=== PATIENT | male | born 1955 | race Caucasian/White ===

== ENCOUNTER 2017-10-28 19:49 | Emergency (ER) | payer OTHER ==
[~2017-10-28] VITALS: Ht 170.2 cm; Wt 99.8 kg
== END 2017-10-28 21:50 | disposition home or self-care (01) ==
LOC: ED 19:49
DX: S93.401A Sprain of unspecified ligament of right ankle, initial encounter (principal); Z88.7 Allergy status to serum and vaccine; X50.9XXA Other and unspecified overexertion or strenuous movements or postures, initial encounter; Y93.02 Activity, running
CPT/HCPCS: 73610; 99283

== ENCOUNTER 2017-11-01 19:40 | Emergency (ER) | payer OTHER ==
[~2017-11-01] VITALS: Ht 170.2 cm; Wt 99.8 kg
== END 2017-11-03 16:04 | disposition short-term general hospital (02) ==
LOC: ED 19:40
DX: F29 Unspecified psychosis not due to a substance or known physiological condition (principal); Z88.7 Allergy status to serum and vaccine
CPT/HCPCS: 70450; 80053; 80176; 81001; 82140; 84443; 85025; 99285; G0480

== ENCOUNTER 2017-12-13 13:48 | Emergency (ER) | payer OTHER ==
[~2017-12-13] VITALS: Ht 170.2 cm; Wt 99.8 kg
--- OUTSIDE RECORDS SUMMARY | ~2017-12-13 | XMS | Encounter Summary ---
Demographics + + + | Address | [address] | | | [place] [address] | + + + | Home Phone | | + + + | Preferred Language | Unknown | + + + | Marital Status | | + + + | Shinto Affiliation | Unknown | + + + | Race | Unknown | + + + | Ethnic Group | Unknown | + + + Author + + + | Author | [facility] | + + + | Organization | [facility] | + + + | Address | Unknown | + + + | Phone | Unavailable | + + + Support + + + + + | Name | Relationship | Address | Phone | + + + + + | Ana Jacobson | ECON | [address] | | | | | [place] | | | | | [address] | | + + + + + Care Team Providers + +------+ + | Care Recovery Specialist Name | Role | Phone | + +------+ + | Reno Coughlin MD | PCP | | + +------+ + Reason for Visit +--------+ + | Reason | Comments | +--------+ + | Other | [facility] | +--------+ + Encounter Details +--------+ + + + + | Date | Type | Department | Care Team | Description | +--------+ + + + + | 10/24/ | Sayda | ELISSA Phipps | Esther Moreno | Other ([facility] | | 2018 | on Only | [facility] | Etta, MANUFACTURING MAINTENANCE MANAGER | Records) | | | | [address] | | | | | | [place] | | | | | | [address] | | | | | | [phone] | | | +--------+ + + + + Social History + +-------+ +--------+------+ | Tobacco Use | Types | Packs/Day | Years | Date | | | | | Used | | + +-------+ +--------+------+ | Never Smoker | | | | | + +-------+ +--------+------+ + +---+---+---+ | Smokeless Tobacco: | | | | | Current User | | | | + +---+---+---+ + + +---------+ + | Alcohol Use | Drinks/We | oz/Week | Comments | | | ek | | | + + +---------+ + | Yes | | | occ | + + +---------+ + + + + | Sex Assigned at | Date Recorded | | | | + + + | Not on file | | + + + as of this encounter Plan of Treatment Not on fileas of this encounter Visit Diagnoses Not on filein this encounter"
--- OUTSIDE RECORDS SUMMARY | ~2017-12-13 | XMS | Clinical Summary ---
Demographics + + + | Address | [address] | | | [place] [address] | + + + | Home Phone | | + + + | Preferred Language | Unknown | + + + | Marital Status | | + + + | Christianity Affiliation | Unknown | + + + | Race | Unknown | + + + | Ethnic Group | Unknown | + + + Author + + + | Author | [facility] | + + + | Organization | [facility] | + + + | Address | Unknown | + + + | Phone | Unavailable | + + + Support + + + + + | Name | Relationship | Address | Phone | + + + + + | Ana Henson | ECON | [address] | | | | | [place] | | | | | [address] | | + + + + + Care Team Providers + +------+ + | Care Heel Seat Pounder Name | Role | Phone | + +------+ + | Reno Coughlin MD | PP | | + +------+ + Allergies + + + + + + | Active Allergy | Reactions | Severity | Noted | Comments | | | | | Date | | + + + + + + | Simvastatin | Muscle Pain | | 10/09/19 | | | | | | 18 | | + + + + + + | Tetanus Toxoid | Other (See Comments) | Medium | 08/07/20 | Gets red and gets | | | | | 17 | a fever | + + + + + + Current Medications + + +-------+---------+------+------+-------+ | Prescription | Sig. | Disp. | Refills | Star | End | Statu | | | | | | t | Date | s | | | | | | Date | | | + + +-------+---------+------+------+-------+ | aspirin 81 MG | Take 81 mg by mouth | | | | | Activ | | tablet | daily. 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) | | + + + | Shortness of breath | 08/07/2017 | + + + Encounters +--------+ + + + + | Date | Type | Specialty | Care Team | Description | +--------+ + + + + | 10/24/ | Documentati | | Tiffanie Esther | Other ([facility] | | 2017 | on Only | | KAYLIN Quiles | Records) | +--------+ + + + + | 10/09/ | Office | | Fernando Verduzco, | Coronary artery | | 2018 | Visit | | MD | disease involving | | | | | | [place] coronary | | | | | | artery of [place] | | | | | | heart with angina | | | | | | pectoris (HCC) | | | | | | (Primary Dx); | | | | | | Shortness of breath; | | | | | | Other fatigue; | | | | | | Annual physical exam | +--------+ + + + + from Last 3 Months Family History + + +------+ + | Medical History | Relation | Name | Comments | + + +------+ + | Heart defect | Father | | | + + +------+ + + +------+ + + | Relation | Name | Status | Comments | + +------+ + + | Father | | | | | | | (Age | | | | | 69) | | + +------+ + + | Mother | | Alive | | + +------+ + + Social History + +-------+ +--------+------+ [...] on file | | + + + Last Filed Vital Signs + + + + | Vital Sign | Reading | Time Taken | + + + + | Blood Pressure | 132/72 | 10/09/2017 10:30 AM PST | + + + + | Pulse | 98 | 10/09/2017 10:30 AM PST | + + + + | Temperature | - | - | + + + + | Respiratory Rate | - | - | + + + + | Oxygen Saturation | 96% | 10/09/2017 10:30 AM PST | + + + + | Inhaled Oxygen | - | - | | Concentration | | | + + + + | Weight | 102.3 kg (225 lb 8 | 10/09/2017 10:30 AM PST | | | oz) | | + + + + | Height | 170.2 cm (5' 7") | 10/09/2017 10:30 AM PST | + + + + | Body Mass Index | 35.32 | 10/09/2017 10:30 AM PST | + + + + Plan of Treatment + + + + + | Health Maintenance | Due Date | Last Done | Comments | + + + + + | Vaccine: | | | | | Pneumococcal 19-64 | 3 | | | | (PPSV23 only) Medium | | | | | Risk (1 of 1 - | | | | | PPSV23) | | | | + + + + + | Colon Cancer | | | | | Screening | 4 | | | | (Colonoscopy) | | | | + + + + + | Vaccine: Influenza | | | | | (Season Ended) | 8 | | | + + + + + Results Not on filefrom Last 3 Months Insurance + +--------+ +------+-------+---------+ | Payer | Benefi | Subscriber | Type | Phone | Address | | | t Plan | ID | | | | | | / | | | | | | | Group | | | | | + +--------+ +------+-------+---------+ | [employer] | [employer]DS | xxxxxxxxx | | | | | | HEALTH | | | | | | | PLAN | | | | | + +--------+ +------+-------+---------+ + +--------+ +--------+ + + | Guarantor Name | Accoun | Relation to | Date | Phone | Billing Address | | | t Type | Patient | of | | | | | | | | | | + +--------+ +--------+ + + | ELPIDIO HENSON | Person | Self | [birth year] | Work: | 4 | | | al/Shawn | | 1954 | [phone] | [place] [address] | | | jem | | | [phone] Home: | | | | | | | | | | | | | | [phone] | | | | | | | [phone] | | + +--------+ +--------+ + +
--- OUTSIDE RECORDS SUMMARY | ~2017-12-13 | XMS | Clinical Summary ---
Demographics + + + | Address | [address] | | | [place] [address] | + + + | Home Phone | | + + + | Preferred Language | Unknown | + + + | Marital Status | | + + + | Anglican Affiliation | Unknown | + + + | Race | Unknown | + + + | Ethnic Group | Unknown | + + + Author + + + | Author | [facility] | | | and [place] | + + + | Organization | [facility] | | | and [place] | + + + | Address | Unknown | + + + | Phone | Unavailable | + + + Support + + +---------+ + | Name | Relationship | Address | Phone | + + +---------+ + | Ashley Nick | ECON | Unknown | | + + +---------+ + Care Team Providers + +------+ + | Care Manager Nursing Home Name | Role | Phone | + +------+ + | Reno Coughlin | PP | | | MD | | | + +------+ + Allergies Not on File Current Medications Not on file Active Problems Not on file Social History + +-------+ +--------+------+ | Tobacco Use | Types | Packs/Day | Years | Date | | | | | Used | | + +-------+ +--------+------+ | Never Assessed | | | | | + +-------+ +--------+------+ + + + | Sex Assigned at | Date Recorded | | | | + + + | Not on file | | + + + Plan of Treatment + + + + + | Health Maintenance | Due Date | Last Done | Comments | + + + + + | Hepatitis C | | | | | Screening | 4 | | | + + + + + | Vaccine: | | | | | Dtap/Tdap/Td (1 - | 3 | | | | Tdap) | | | | + + + + + | COLON CANCER | | | | | SCREENING | 4 | | | | (COLONOSCOPY EVERY | | | | | 10 YEARS 50-75) | | | | + + + + + | Vaccine: Zoster (#1) | | | | | | 4 | | | + + + + + | Vaccine: Influenza | | | | | (Season Ended) | 8 | | | + + + + + Results Not on filefrom Last 3 Months"
--- OUTSIDE RECORDS SUMMARY | ~2017-12-13 | XMS | Clinical Summary ---
Demographics + + + | Address | [address] | | | [place] [address] | + + + | Home Phone | | + + + | Preferred Language | Unknown | + + + | Marital Status | | + + + | Church Affiliation | Unknown | + + + | Race | Unknown | + + + | Ethnic Group | Unknown | + + + Author + + + | Author | [facility] [employer] [facility] | + + + | Organization | [facility] | + + + | Address | Unknown | + + + | Phone | Unavailable | + + + Support + + + + + | Name | Relationship | Address | Phone | + + + + + | Ana Henson | ECON | [address] | | | | | [place] | | | | | [address] | | + + + + + Care Team Providers + +------+ + | Care Rn Unit Manager Name | Role | Phone | + [...] + + | 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
--- OUTSIDE RECORDS SUMMARY | ~2017-12-13 | XMS | Encounter Summary ---
Demographics + + + | Address | [address] | | | [place] [address] | + + + | Home Phone | | + + + | Preferred Language | Unknown | + + + | Marital Status | | + + + | Jainism Affiliation | Unknown | + + + | Race | Unknown | + + + | Ethnic Group | Unknown | + + + Author + + + | Author | [facility] [facility] | + + + | Organization | [facility] | + + + | Address | Unknown | + + + | Phone | Unavailable | + + + Support + + + + + | Name | Relationship | Address | Phone | + + + + + | Ana Jacobson | ECON | [address] | | | | | [place] | | | | | [address] | | + + + + + Care Team Providers + +------+ + | Care Color Mixer Name | Role | Phone | + [...] on Only | Cardiology [facility] | Etta, VACATION PLANNER | Records) | | | | [address] | | | | | | [place] | | | | | | [address] | | | | | | [phone] | | | +--------+ + + + [...]
--- OUTSIDE RECORDS SUMMARY | ~2017-12-13 | XMS | Encounter Summary ---
Demographics + + + | Address | [address] | | | [place] [address] | + + + | Home Phone | | + + + | Preferred Language | Unknown | + + + | Marital Status | | + + + | Rastafarian Affiliation | Unknown | + + + | Race | Unknown | + + + | Ethnic Group | Unknown | + + + Author + + + | Author | [facility] [facility] | + + + | Organization | [facility] | + + + | Address | Unknown | + + + | Phone | Unavailable | + + + Support + + + + + | Name | Relationship | Address | Phone | + + + + + | Ana Jacobson | ECON | [address] | | | | | [place] | | | | | [address] | | + + + + + Care Team Providers + +------+ + | Care Reporting Manager Name | Role | Phone | + +------+ + | Chris Coughlin MD | PCP | | + +------+ + Reason for Visit + + + | Reason | Comments | + + + | Coronary Artery | | | Disease | | + + + Encounter Details +--------+---------+ + + + | Date | Type | Department | Care Team | Description | +--------+---------+ + + + | 10/09/ | Office | [facility] | Fernando Gordon, | Coronary artery | | 2018 | Visit | [facility] | [address] | disease involving | | | | [address] | [address], | [place] coronary | | | | [address] | [place] [address] | artery of [place] | | | | [place] [address] | [phone] | heart with angina | | | | [phone] | | pectoris (HCC) | | | | | | (Primary Dx); | | | | | | Shortness of breath; | | | | | | Other fatigue; | | | | | | Annual physical exam | +--------+---------+ + + + Social History + +-------+ [...] + + + as of this encounter Last Filed Vital Signs + + + [...] AM PST | + + + + in this encounter Progress Notes Fernando Gorodn MD - 10/09/2017 10:45 AM PSTFormatting of this note may be different fro m the original. Date of visit: 10/09/2017 Primary Care Physician: CHRIS COUGHLIN CHIEF COMPLAINT: Chief Complaint Patient presents with Coronary Artery Disease HISTORY OF PRESENT ILLNESS: Elpidio is 62 y.o. here for follow up visit. Continues to complain of fatigue and tiredness started 2 months ago. Patient is active, retired, takes care of his mother. Also complains of shortness breath on excessive activity. Also has intermittent chest pain which is dull on the left side of his chest. No radiation. Has been going with adjustment in his personal life, no sleep at home. Has history of CAD in 2001 had PCI to proximal LAD. Has been of medication for many years. Takes only ASA on intermittent basis. Past medical history, SH, FH, and medications were reviewed in the chart. Medications: Outpatient Encounter Prescriptions as of 10/09/2017 Medication Sig Dispense Refill aspirin 81 MG tablet Take 81 mg by mouth daily. atorvastatin (LIPITOR) 40 MG tablet Take 1 tablet by mouth nightly. (Patient not taking : Reported on 10/09/2017) 60 tablet 2 No facility-administered encounter medications on file as of 10/09/2017. Allergies Allergies Allergen Reactions Tetanus Toxoid Other (See Comments) Gets red and gets a fever REVIEW OF SYSTEMS: Constitutional: negative for fatigue. No fever, chills, and rigors. No report of weight ch apolinar. HEENT: Negative for nosebleeds, ear discharge, nasal congestion or soar throat. Eyes: Negative for visual disturbance, redness, or secretion. Respiratory: Negative for cough, sputum production, hemoptysis, wheezing. Cardiovascular: As HPI. Gastrointestinal: Negative for nausea, vomiting, diarrhea, abdominal pain and blood in stoo l. Genitourinary: Negative for dysuria or hematuria. Musculoskeletal: Arthritic pain. Skin: Negative for rash. Neurological: Negative for dizziness. No numbness. No recent falls. No slurred speech. Hematological: No significant bruising. Psychiatric/Behavioral: No depression or anxiety. PHYSICAL EXAM Vital Signs: BP 132/72 (BP Location: Left upper arm, Patient Position: Sitting) | Pulse 98 | Ht 1.702 m (5' 7") | Wt 102.3 kg (225 lb 8 oz) | SpO2 96% | BMI 35.32 kg/m GENERAL APPEARANCE: Alert, oriented, cooperative, no distress, appears stated age. HEENT: Extraocular movements were intact. No jaundice. Pupiles round and reactive. NECK: No JVD, lymphadenopathy. Carotid upstrokes normal. No carotid bruit heard. CARDIAC: Regular rhythm and rate. There is normal S1 and S2. No galop. No murmur. CHEST: Normal bilateral symmetrical chest excursion.ackles or wheezing. No evidence of dull ness. ABDOMEN: Soft.No tenderness or guarding. No palpable organs. Active bowel sounds. EXTREMITIES: No lower extremities edema, cyanosis or clubbing. NEURO: Alert and oriented times three with no focal deficit. Cranial nerves are grossly no rmal. SKIN: Warm and dry. No rash. Psych: Normal affect and mood. DATA No results found for: NA, K, CO2, BUN, CREATININE, GLUCOSE, CALCIUM, MG No results found for: WBC, HGB, HCT, MCV, PLT No results found for: CHOL, TRIG, HDL, LDL, GLUF, HGBA1C, TSH EK08/07/2017 Ordered and reviewed by myself showed normal sinus rhythm and normal axis otherwise normal EKG. Last Echo: 07/03/2017 LV is normal in size, wall thickness and systolic function. Grade I diastolic dysfunction. RV is normal in size and function. No significant valvular pathology. Last stress test: 09/16/2017 Cardiolite stress test, Junior 6 min, asymptomatic and maximal with no ischemic EKG changes. Perfusion images reported to be with no evidence of ischemia or infarction, normal LV size and function EF 53%. Last cath: 2001 Proximal LAD states post 4.0 x 13 mm VELOCITY Carotid US: AAA screening: Lower extremity US: OTHERS: ASSESSMENT: Patient is 62 y.o. male with the following medical problems 1. Shortness of breath on exertion and intermittent chest pain. 2. Coronary Artery disease with previous PCI to proximal LAD with bare-metal stent in 2001. 3. Obesity. Recommendations: Reviewed the stress test with the patient. No evidence of ischemia on EKG or perfusion imag es. We will continue with daily aspirin. Happy with the patient weight loss of 7 pounds since prior evaluation. Patient in the past tried simvastatin and that gave him severe myalgia. Will attempt atorvastatin. Patient will get lipid panel, CMP, TSH, and CBC before starting medication. Discussed with patient exercise and lifestyle modification Follow-up in one year or earlier if needed. *This report has been prepared using a voice recognition system. The report was reviewed fo r accuracy, however, sound-alike word errors, addition and/or deletions may occur. If there is any question about this report please contact me. Fernando Gordon MD, MPHin this encounter Plan of Treatment + +--------+ + + | Name | Priori | Associated Diagnoses | Order Schedule | | | ty | | | + +--------+ + + | Lipid panel | Routin | Coronary Artery | Expected: | | | e | Disease Involving | 10/09/2017, Expires: | | | | [place] Coronary | 10/09/2018 | | | | Artery Of [place] | | | | | Heart With Angina | | | | | Pectoris (Hcc) | | + +--------+ + + | CBC and differential | Routin | Coronary Artery | Expected: | | | e | Disease Involving | 10/09/2017, Expires: | | | | [place] Coronary | 10/09/2018 | | | | Artery Of [place] | | | | | Heart With Angina | | | | | Pectoris (Hcc) | | + +--------+ + + | TSH | Routin | Shortness of | Expected: | | | e | breath Annual | 10/09/2017, Expires: | | | | physical exam | 10/09/2018 | + +--------+ + + | Glycohemoglobin A1c | Routin | Shortness of | Expected: | | | e | breath Annual | 10/09/2017, Expires: | | | | physical exam | 10/09/2018 | + +--------+ + + | Comprehensive metabolic panel | Routin | Coronary Artery | Expected: | | | e | Disease Involving | 10/09/2017, Expires: | | | | [place] Coronary | 10/09/2018 | | | | Artery Of [place] | | | | | Heart With Angina | | | | | Pectoris ([facility]) | | | | | Annual physical exam | | + +--------+ + + as of this encounter Visit Diagnoses + + | Diagnosis | + + | Coronary artery disease involving [place] coronary artery of [place] heart with angina | | pectoris (HCC) - Primary | + + | Shortness of breath | + + | Other fatigue | + + | Annual physical exam | + + | Routine general medical examination at a health care facility | + +
--- OUTSIDE RECORDS SUMMARY | ~2017-12-13 | XMS | Encounter Summary ---
Demographics + + + | Address | [address] | | | [place] [address] | + + + | Home Phone | | + + + | Preferred Language | Unknown | + + + | Marital Status | | + + + | Judaism Affiliation | Unknown | + + + | Race | Unknown | + + + | Ethnic Group | Unknown | + + + Author + + + | Author | [facility] | + + + | Organization | [facility] | + + + | Address | Unknown | + + + | Phone | Unavailable | + + + Support + + + + + | Name | Relationship | Address | Phone | + + + + + | Ana Jacobson | ECON | [address] | | | | | [place] | | | | | [address] | | + + + + + Care Team Providers + +------+ + | Care Circus Supervisor Name | Role | Phone | + [...] [address] | [address], | [place] coronary | | | | [address] | [place] [address] | artery of [place] | | | | [place] [address] | [phone] | heart with angina | | | | [phone] | | pectoris (HCC) | | | [...] + in this encounter Progress Notes Fernando Gordon MD - 10/09/2017 10:45 AM PSTFormatting of [...] | 10/09/2017, Expires: | | | | [place] Coronary | 10/09/2018 | | | | Artery Of [place] | | | | | Heart With Angina | | | | | Pectoris (Hcc) | | + +--------+ + + | CBC and differential | Routin | Coronary Artery | Expected: | | | e | Disease Involving | 10/09/2017, Expires: | | | | [place] Coronary | 10/09/2018 | | | | Artery Of [place] | | | | | Heart With [...] | 10/09/2017, Expires: | | | | [place] Coronary | 10/09/2018 | | | | Artery Of [place] | | | | | Heart With Angina | | | | | Pectoris ([facility]) | | | | | Annual physical exam | | + +--------+ + + as of this encounter Visit Diagnoses + + | Diagnosis | + + | Coronary artery disease involving [place] coronary artery of [place] heart with angina | | pectoris (HCC) - Primary | + + | Shortness of breath | + + | Other fatigue | + + | Annual physical exam | + + | Routine general medical examination at a health care facility | + +
--- OUTSIDE RECORDS SUMMARY | ~2017-12-13 | XMS | Clinical Summary ---
Demographics + + + | Address | [address] | | | [place] [address] | + + + | Home Phone | | + + + | Preferred Language | Unknown | + + + | Marital Status | | + + + | Protestant Affiliation | Unknown | + + + | Race | Unknown | + + + | Ethnic Group | Unknown | + + + Author + + + | Author | [facility] | | | and [place] | + + + | Organization | [facility] | | | and [place] | [...] Team Providers + +------+ + | Care Crm Manager Name | Role | Phone | [...]
[2017-12-13] MEDS ORDERED: NAPROSYN500 MG PO (18:41)
== END 2017-12-13 18:50 | disposition home or self-care (01) ==
LOC: ED 13:48
DX: S30.0XXA Contusion of lower back and pelvis, initial encounter (principal); W17.89XA Other fall from one level to another, initial encounter
CPT/HCPCS: 72220; 74177; 80053; 85025; 85610; 99284; Q9967

== ENCOUNTER 2021-01-07 14:19 | Emergency (ER) | payer MEDICARE, OTHER ==
[~2021-01-07] VITALS: Ht 170.2 cm; Wt 99.8 kg
[~2021-01-07 14:19] MED LIST: NAPROSYN500 MG PO
[2021-01-07] MEDS ORDERED: DICLOFENAC SODI75 MG PO (14:34)
--- NOTE | 2021-01-08 11:53 | EKG ---
[facility] [address] [facility] [place], [place] [address] Signed Normal sinus rhythm with sinus arrhythmia Normal ECG No previous ECGs available Confirmed by AMADEO GASTON DO ([id number]) on 01/08/2021 11:52:43 AM Electronically Signed By: AMADEO GASTON DO 01/08/21 1153 PATIENT NAME: VAHID HENSON Electrocardiogram DATE OF : 53 PHYSICIAN: AMADEO GASTON DO REPORT #: [id number] REPORT IS CONFIDENTIAL AND NOT TO BE RELEASED WITHOUT AUTHORIZATION
== END 2021-01-07 19:28 | disposition home or self-care (01) ==
LOC: ED 14:19
DX: R07.9 Chest pain, unspecified (principal); Z88.1 Allergy status to other antibiotic agents; Z88.7 Allergy status to serum and vaccine
CPT/HCPCS: 71045; 80053; 83735; 84484; 85025; 93005; 93010; 99285-25

== ENCOUNTER 2022-08-15 12:37 | Emergency (ER) | payer MEDICARE, OTHER ==
[~2022-08-15] VITALS: Ht 170.2 cm; Wt 99.8 kg
[~2022-08-15 12:37] MED LIST changes: +DICLOFENAC SODI75 MG PO
[2022-08-15] MEDS ORDERED: TAMSULOSIN HCL0.4 MG PO (12:45)
[2022-08-15] MEDS ORDERED: CIPROFLOXACIN500 MG PO (12:45)
--- NOTE | 2022-08-17 22:02 | EKG ---
[facility] [address] [place] [address] Signed Sinus tachycardia Otherwise normal ECG When compared with ECG of 07-JAN-2021 14:28, No significant change was found Confirmed by Abby Bethea MD () on 08/17/2022 10:02:07 PM Electronically Signed By: ABBY BETHEA MD 08/17/222201 PATIENT NAME: VAHID HENSON Electrocardiogram DATE OF : 53 PHYSICIAN: ABBY BETHEA MD REPORT #: [id number] REPORT IS CONFIDENTIAL AND NOT TO BE RELEASED WITHOUT AUTHORIZATION
== END 2022-08-15 14:43 | disposition home or self-care (01) ==
LOC: ED 12:37
DX: J10.1 Influenza due to other identified influenza virus with other respiratory manifestations (principal); E86.0 Dehydration; R55 Syncope and collapse; Z88.1 Allergy status to other antibiotic agents; Z88.7 Allergy status to serum and vaccine; Z79.899 Other long term (current) drug therapy; Z20.822 Contact with and (suspected) exposure to COVID-19
CPT/HCPCS: 87502; 93005; 93010; 96360; 99284-25; C9803; J7030; U0003

== ENCOUNTER 2023-05-02 06:15 | Day surgery (SDC) | payer MEDICARE, OTHER ==
[~2023-05-02] VITALS: Ht 170.2 cm; Wt 102.5 kg
[~2023-05-02 06:15] MED LIST changes: +CIPROFLOXACIN500 MG PO; +CRESTOR20 MG PO; +DOXYCYCLINE HY100 MG PO; +TAMSULOSIN HCL0.4 MG PO
[2023-05-02 06:34] VITALS: BP 155/78
--- NOTE | 2023-05-02 07:20 | NUR ---
EXERCISED MINISTRY OF PRESENCE. DENIED NEEDS. DECLINED PRAYER. PRAYED SILENT PRAYER FOR SUCCESSFUL PROCEDURE.
--- NOTE | 2023-05-02 08:16 | NUR ---
05/02/23 0816 Jannie Anthony 0812-PATIENT ARRIVED TO PACU ON 3L NC RR EVEN PLACED ON 2L. PATIENT DROWSY DENIES PAIN OR NAUSEA. LAYING LEFT LATERAL. IVF INFUSING. ABDOMEN SOFT ENCOURAGED TO PASS GAS. PATIENT DOZES BACK TO SLEEP
[2023-05-02 08:57] VITALS: BP 123/79
--- NOTE | 2023-05-02 09:26 | OR ---
[facility] [address], [place] [address] Signed DATE OF OPERATION: 05/02/2023 SURGEON: Calderon Harris MD PREOPERATIVE DIAGNOSES: 1. Personal history of colonic polyps in 2013 at age 59. 2. Diverticulosis. 3. Internal hemorrhoids. 4. Status post radiation therapy for prostate cancer. POSTOPERATIVE DIAGNOSES: 1. Minimal to moderate sigmoid diverticulosis. 2. Minimal to moderate internal hemorrhoids with skin tags x2. 3. 4 mm polyp at 60 cm in the left colon. 4. 3 mm polyp x2 at cecum. 5. 4 mm polyp distal right colon. PROCEDURE: Colonoscopy with hot biopsy. ESTIMATED BLOOD LOSS: None. INDICATIONS: Elpidio is a 68-year-old gentleman, asked to see me for followup colonoscopy. He describes a flexible sigmoidoscopy in 2003 at the age of [address] Coughlin in the office. He said he had some rectal bleeding. He was in the hospital in 2013 at the age of 59. He underwent a colonoscopy and there was concern for mild ischemic colitis in his distal transverse colon due to dehydration. He also had two tubular adenomatous polyps removed and one tubular villous adenomatous polyp removed. He was also noted to have diverticulosis and internal hemorrhoids. He had been asked to follow up in 5 years. Unfortunately, we came through the COVID pandemic. He then had prostate cancer. He has now completed radiation therapy for his prostate cancer. He currently has no lower GI complaints. He has no family history of colon cancer or polyps. In the office, I had given him a pamphlet on colonoscopy. We had reviewed his records together along with the pamphlet. He understands the nature of colonoscopy. There is risk including, but not limited to gas bloating, crampy abdominal pain, bleeding, perforation requiring surgery, and missed diagnosis. We also reviewed the written instructions for the bowel prep line by line. He also understands the need for IV conscious sedation. He understands an adult person has to take him home afterwards. He had expressed Electronically Signed By: CALDERON HARRIS MD 05/02/23 0926 PATIENT NAME: ELPIDIO HENSON OPERATIVE REPORT DATE OF : 53 REPORT #: [id number] PHYSICIAN: CALDERON HARRIS MD PCP: Juan Bustos REPORT IS CONFIDENTIAL AND NOT TO BE RELEASED WITHOUT AUTHORIZATION [facility] [address] [place] [id number] Signed understanding and wished to proceed. PROCEDURE NOTE: Elpidio was taken into our endoscopy suite and placed in the left lateral decubitus position. He was given a total of 6 mg of Versed and 100 mcg of fentanyl to cover the case. A digital rectal exam was performed and really no external hemorrhoids. He had good sphincter tone. He has very little prostate tissue left. No obvious nodules. The adult colonoscope was introduced and advanced under direct visualization of the camera. It took just a little extra sedation in order to get the camera into the cecum itself. His prep was good. We could easily see the appendiceal orifice and the ileocecal valve. We removed the polyp in the cecum with two different bites and our nurse had placed that in 2 different containers. It actually has 1 polyp. The other polyps were also removed with the help of hot biopsy forceps. No evidence of any ischemic colitis, particularly in the distal transverse colon. He does have left and sigmoid diverticula. They were moderate in size, few in number and scattered about. Once in the rectum, the scope had been retroflexed and as is common he has just a tiny bit of irritation in the area of the prostate gland from the digital rectal exam. He does have minimal to moderate internal hemorrhoids with 2 internal anal skin tags. After this, the gas was suctioned out and the colonoscope removed. Byron tolerated the procedure quite well. RECOMMENDATIONS: I will see Byron back in my office in 7 to 14 days to review his results. It looks like he will be on the 5 year rotation. MD JOHN Mortensen/VIDAL /[id number] cc: MD Calderon Lr MD Copies: PRIYANKA ENRIQUE DMD Electronically Signed By: CALDERON HARRIS MD 05/02/23 0926 PATIENT NAME: ELPIDIO HENSON OPERATIVE REPORT DATE OF : 53 REPORT #: [id number] PHYSICIAN: CALDERON HARRIS MD PCP: Juan Bustos REPORT IS CONFIDENTIAL AND NOT TO BE RELEASED WITHOUT AUTHORIZATION [address] [address] Signed CALDERON HARRIS MD ~ Electronically Signed By: CALDERON HARRIS MD 05/02/23 0926 PATIENT NAME: ELPIDIO HENSON OPERATIVE REPORT DATE OF : 53 REPORT #: [id number] PHYSICIAN: CALDERON HARRIS MD PCP: Juan Bustos REPORT IS CONFIDENTIAL AND NOT TO BE RELEASED WITHOUT AUTHORIZATION
--- NOTE | 2023-05-06 12:16 | PATH ---
[facility] [address] [place], [place] [address] Signed SPECIMEN(S): A DESCENDING/LEFT COLON POLYP SPECIMEN(S): B CECUM COLON POLYP SPECIMEN(S): C CECUM COLON POLYP SPECIMEN(S): D DISTAL ASCENDING/RIGHT COLON POLYP SPECIMEN SOURCE: A. DESCENDING/LEFT COLON POLYP B. CECUM COLON POLYP C. CECUM COLON POLYP D. DISTAL ASCENDING/RIGHT COLON POLYP CLINICAL HISTORY: Pre: 2013 hx of tubular adenoma and tubular villous adenoma. = FINAL PATHOLOGIC DIAGNOSIS: A. Descending / left colon polyp: - Tubular adenoma (one fragment). B. Cecum colon polyp: - Tubular adenoma (one fragment). C. Cecum colon polyp: - Tubular adenoma (one fragment). D. Distal ascending / right colon polyp. - Tubular adenoma (one fragment). VR:[facility] MICROSCOPIC EXAMINATION: Histologic sections of all submitted blocks are examined by light microscopy. These findings, together with the gross examination, support the pathologic diagnosis. GROSS DESCRIPTION: A. The specimen, labeled and designated "Goad, T, colon, descending/left polypectomy at 60 cm," is received in formalin and consists of 1 shirley soft tissue fragment measuring 0.2 x 0.4 cm is submitted entirely in (A1). B. The specimen, labeled and designated "Goad, T, colon, cecum polypectomy," is received in formalin and consists of 1 shirley soft tissue fragment measuring 0.2 x 0.4 cm is submitted entirely in (B1). C. The specimen, labeled and designated "Goad, T, colon, cecum polypectomy," is received in formalin and consists of 1 shirley soft tissue fragment measuring 0.2 x 0.4 cm is submitted entirely in (C1). PATIENT NAME: VAHID HENSON PATHOLOGY DATE OF : 53 REPORT #: [id number] PHYSICIAN: SINDYOrgger PATHOLOGY PCP: Juan Bustos REPORT IS CONFIDENTIAL AND NOT TO BE RELEASED WITHOUT AUTHORIZATION [facility] [address] [facility] [place] [address] Signed D. The specimen, labeled and designated "Goad, T, distal colon, ascending right polypectomy," is received in formalin and consists of 2 shirley soft tissue fragments measuring 0.3 x 0.3 cm are submitted entirely in (D1). MMA (under the direct supervision of a pathologist) The Gross Description was prepared using a voice recognition system. The report was reviewed for accuracy; however, sound-alike word errors, addition and/or deletions may occur. If there is any question about this report, please contact Client Services. PERFORMING LABORATORY: Technical component was performed by [employer], [address] [place] [id number] (CLIA# [id number]). Professional interpretation was performed by [facility] - [facility], [address] [place] [id number] (CLIA#: [id number]). Diagnostician: Austen Watkins MD Pathologist Electronically Signed 05/06/2023 Copies: ~ PATIENT NAME: VAHID HENSON PATHOLOGY DATE OF : 53 REPORT #: [id number] PHYSICIAN: ИРИНА URIARTE PCP: Juan Bustos REPORT IS CONFIDENTIAL AND NOT TO BE RELEASED WITHOUT AUTHORIZATION
== END 2023-05-02 09:05 | disposition home or self-care (01) ==
LOC: DS 06:15 → OPS 06:15 → DS 07:30 → OPS 07:30
PROVIDERS: ATTEND Colon & Rectal Surgery
PROC: 0DBM8ZX Excision of Descending Colon, Via Natural or Artificial Opening Endoscopic, Diagnostic (ICD-10-PCS; 2023-05-02)
PROC: 0DBH8ZX Excision of Cecum, Via Natural or Artificial Opening Endoscopic, Diagnostic (ICD-10-PCS; principal; 2023-05-02 07:30)
DX: D12.4 Benign neoplasm of descending colon (principal); D12.2 Benign neoplasm of ascending colon; K57.30 Diverticulosis of large intestine without perforation or abscess without bleeding; K64.8 Other hemorrhoids; Z85.46 Personal history of malignant neoplasm of prostate; Z86.010 Personal history of colon polyps; I25.10 Atherosclerotic heart disease of native coronary artery without angina pectoris; E66.9 Obesity, unspecified; E78.00 Pure hypercholesterolemia, unspecified; I10 Essential (primary) hypertension; Z68.35 Body mass index [BMI] 35.0-35.9, adult
CPT/HCPCS: 99153; G0500; J2250; J3010; J7121

== ENCOUNTER 2024-11-18 13:15 | Emergency (ER) | payer MEDICARE, OTHER ==
[~2024-11-18] VITALS: Ht 170.2 cm; Wt 108.7 kg
[2024-11-18] MEDS ORDERED: METOPROLOL SUCC25 MG (13:29)
[2024-11-18] MEDS ORDERED: TAMSULOSIN HCL0.4 MG (13:29)
[2024-11-18] MEDS ORDERED: LO-DOSE ASPIRIN81 MG (13:29)
[2024-11-18 15:20] VITALS: BP 131/64
== END 2024-11-18 15:25 | disposition home or self-care (01) ==
LOC: ED 13:15
DX: S51.811A Laceration without foreign body of right forearm, initial encounter (principal); W22.8XXA Striking against or struck by other objects, initial encounter; I25.2 Old myocardial infarction; E78.5 Hyperlipidemia, unspecified; Z79.82 Long term (current) use of aspirin; Z88.1 Allergy status to other antibiotic agents; Z88.7 Allergy status to serum and vaccine
CPT/HCPCS: 12004; 99282

== ENCOUNTER 2024-12-13 15:22 | Observation (INO) | payer MEDICARE, OTHER ==
[~2024-12-13] VITALS: Ht 170.2 cm; Wt 108.2 kg
[~2024-12-13 15:22] MED LIST changes: -CRESTOR20 MG PO; +LO-DOSE ASPIRIN81 MG PO; +METOPROLOL SUCC25 MG PO; +ROSUVASTATIN CA20 MG PO; +SEVOFLURANE 250 ML BTL INH ONE
--- OUTSIDE RECORDS SUMMARY | 2024-12-13 15:30 | XMS ---
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 Ethan has no Care Guidelines for this patient. Tammy VISIT COUNT (12 MO.) 3 [facility] [place] H. TOTAL 3 NOTE: Visits indicate total known visits. ED/[facility] VISIT TRACKING (12 MO.) 12/13/2024 15:[address] [facility] [place] TYPE: Emergency COMPLAINT: - THROAT PROBLEM 11/19/2024 09:24 [facility] TYPE: Emergency COMPLAINT: - DRESSING CHANGE 11/18/2024 13:16 [facility] [place] TYPE: Emergency COMPLAINT: - RT ARM LACERATION DIAGNOSES: - Allergy status to other antibiotic agents - Allergy status to serum and vaccine - Hyperlipidemia, unspecified - Laceration without foreign body of right forearm, initial encounter - Laceration without foreign body of right upper arm, initial encounter - buttermaker continuous churn (current) use of aspirin - Old myocardial infarction - Striking against or struck by other objects, initial encounter INPATIENT VISIT TRACKING (12 MO.) No inpatient visits to display in this time frame [email or web address]
[2024-12-13] MEDS ORDERED: HYDROmorphone HCL 1 MG/ML SYR IV PRN ×2 (17:00→21:30)
[2024-12-13] MEDS ORDERED: GLUCAGON,HUMAN RECOMBINANT 1 MG/ML VIAL IV ONE (17:15)
[2024-12-13 19:02] LABS: BASOPHILS 0.3 % (0-2); EOSINOPHILS 0.3 % (0-6); HEMATOCRIT 42.4 % (35.0-50.0); HEMOGLOBIN 14.8 g/dL (12.0-18.0); MCH 29.8 (27-36); MCHC 34.9 g/dl (30-36); MCV 85.6 fl (81-99); MONOCYTES 6.1 % (0-12); NEUTROPHILS 89.3 % (39-80); PLATELET COUNT 264 K/uL (140-440); RBC 4.95 M/ul (4.3-5.7); RDW 13.4 (10.5-15.0)
[2024-12-13 19:16] LABS: INR 1.08 (0.80-1.30); PROTIME 13.4 Sec (11.2-14.2)
[2024-12-13 19:17] LABS: ALBUMIN/GLOBULIN RATIO 1.11 (1.1-2.4); ANION GAP 12.1 (7-21); BILIRUBIN, TOTAL 1.2 mg/dL (0.2-1.0); BUN/CREATININE RATIO 12.84 (6.0-28.6); CREATININE, SERUM 1.09 mg/dL (0.70-1.30); POTASSIUM 4.1 mmol/L (3.5-5.1); PROTEIN, TOTAL 7.6 g/dL (6.4-8.2)
[2024-12-13] MEDS ORDERED: LIDOCAINE HCL 2% 5 ML SDV ONE (19:54)
[2024-12-13] MEDS ORDERED: fentaNYL citrate 100 MCG/2 ML VIAL ONE (19:54)
[2024-12-13] MEDS ORDERED: ondansetron HCL 4 MG/2 ML VIAL ONE (19:54)
[2024-12-13] MEDS ORDERED: propofoL 200 MG/20 ML VIAL ONE (19:54)
[2024-12-13] MEDS ORDERED: DEXAMETHASONE SOD PHOS 4 MG/ML VIAL ONE (19:54)
[2024-12-13] MEDS ORDERED: dexmedeTOMIDine HCl 200 MCG/2 ML VIAL ONE (19:54)
[2024-12-13] MEDS ORDERED: ROCURONIUM BROMIDE 50 MG/5 ML SYR ONE (19:54)
[2024-12-13] MEDS ORDERED: SUCCINYLCHOLINE IN 0.9% NACL 200 MG/10 ML SYRINGE ONE (19:54)
[2024-12-13] MEDS ORDERED: PHENYLEPHRINE HCL 10 MG/ML VIAL ONE (20:21)
[2024-12-13] MEDS ORDERED: SODIUM CHLORIDE 0.9% 40 ML IV ONE (20:21)
[2024-12-13] MEDS ORDERED: SUGAMMADEX SODIUM 200 MG/2 ML ML ONE (21:00)
[2024-12-13] MEDS ORDERED: NALOXONE HCL 0.4 MG SYR IV PRN (21:30)
[2024-12-13] MEDS ORDERED: LACTATED RINGER'S 1,000 ML IV SCH (21:30)
[2024-12-13] MEDS ORDERED: MORPHINE SULFATE 10 MG/ML VIAL IV PRN (21:30)
[2024-12-13] MEDS ORDERED: FAMOTIDINE 20 MG/ 2 ML VIAL IV SCH (21:36)
[2024-12-13 21:56] VITALS: BP 121/66
[2024-12-13 22:39] VITALS: BP 122/70
[2024-12-13 22:40] VITALS: BP 122/70
[2024-12-13 23:32] VITALS: BP 116/60
[2024-12-13 23:34] VITALS: BP 116/60
[2024-12-14] VITALS (7 sets, daily range): BP systolic 97–115; BP diastolic 51–54
--- NOTE | 2024-12-14 07:48 | OR ---
[facility] [address] [place], [place] [address] Signed DATE OF OPERATION: 12/13/2024 SURGEON: Deepa Hutton MD PREOPERATIVE DIAGNOSIS: Impacted foreign body in distal esophagus. POSTOPERATIVE DIAGNOSIS: Impacted foreign body in distal esophagus. PROCEDURE: EGD and removal of foreign body. ANESTHESIA: General endotracheal anesthesia. INDICATIONS: This is a 69-year-old male who presented to the emergency room today with history of having dinner and eating prime rib and feeling obstruct in the distal esophagus with some substernal pain as well as vomiting the contents. In spite of conservative management, he failed to resolve the issue and presents now for urgent EGD and removal of foreign body. DESCRIPTION OF PROCEDURE: After obtaining informed consent, the patient was taken to the operating room where he was placed in a supine position. After achieving adequate endotracheal intubation and a bite block was placed and a previously lubricated scope was then inserted in the oropharynx and advanced all the way to the esophagus. At this point, in the distal esophagus, there was a longitudinal tear and it looked like partial thickness. There is a little bit of oozing. Distal to the tear, there was an impacted food that I was able to disimpact with graspers. Once I disimpacted, I visualized the distal esophagus and lower esophageal sphincter. He appeared to be intact and within normal limits. I entered the stomach and evaluated the stomach further. He irrigated and suctioned all the fluid and air within the stomach and then I pulled back and I turned my attention to the esophagus. I reviewed lower esophageal sphincter again and turned my attention towards the longitudinal laceration. It appeared to be partial thickness and previously disimpacted food was then grabbed with a basket and then pulled out of the mouth with gentle traction. After this, I went ahead and inspected the oropharynx just to make sure that there was no residual food in the area prior to extubation. The patient tolerated well the procedure, was then taken to the recovery room in good and Electronically Signed By: DEEPA HUTTON MD 12/14/24 0748 PATIENT NAME: VAHID HENSON OPERATIVE REPORT DATE OF : 53 REPORT #: [id number] PHYSICIAN: DEEPA HUTTON MD PCP: PRIYANKA ENRIQUE MD REPORT IS CONFIDENTIAL AND NOT TO BE RELEASED WITHOUT AUTHORIZATION [facility] [address] [place] [id number] Signed stable condition. FINDINGS: Distal food impaction in combination of prime rib and asparagus. Longitudinal tear of approximately 4 cm in length in the distal esophagus proximal to the impaction. MD MIREILLE Dowling/VINCENT /[id number] Copies: ~ Electronically Signed By: DEEPA HUTTON MD 12/14/24 0748 PATIENT NAME: VAHID HENSON OPERATIVE REPORT DATE OF : 53 REPORT #: [id number] PHYSICIAN: DEEPA HUTTON MD PCP: PRIYANKA ENRIQUE MD REPORT IS CONFIDENTIAL AND NOT TO BE RELEASED WITHOUT AUTHORIZATION
[2024-12-14] MEDS ORDERED: FUROSEMIDE20 MG PO (09:22)
== END 2024-12-14 13:49 | disposition home or self-care (01) ==
LOC: ED 15:22 → MS 15:24
PROVIDERS: Emergency Medicine; ADMIT Transplant Surgery; ATTEND Transplant Surgery
PROC: 0DC38ZZ Extirpation of Matter from Lower Esophagus, Via Natural or Artificial Opening Endoscopic (ICD-10-PCS; principal; 2024-12-13 19:35)
DX: T18.128A Food in esophagus causing other injury, initial encounter (principal); I25.10 Atherosclerotic heart disease of native coronary artery without angina pectoris; I25.2 Old myocardial infarction; E78.5 Hyperlipidemia, unspecified; Z88.8 Allergy status to other drugs, medicaments and biological substances; Z95.5 Presence of coronary angioplasty implant and graft; Z79.82 Long term (current) use of aspirin; Z79.899 Other long term (current) drug therapy
CPT/HCPCS: 00731; 36415; 71045; 74230; 80053; 85025; 85610; 85730; 94762; 96360; 96361; 96374; 96375; 99285-25; J0330; J1100; J1171; J1610; J2003; J2371; J2405; J2704; J3010; J3490; J7121